=== PATIENT | female | born 1985 | race Caucasian/White ===

== ENCOUNTER 2018-03-19 09:46 | Emergency (ER) | payer SELFPAY ==
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
[2018-03-19 10:36] LABS: ANION GAP 17.4 mmol/L (5-15); CHLORIDE,CL 103 mmol/L (98-115); SODIUM,NA 139 mmol/L (136-145)
[2018-03-19] MEDS ORDERED: Ondansetron 4 MG/2 ML SDV IVPUSH ONE (10:55)
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
[2018-03-19] MEDS ORDERED: Acetaminophen 325 MG Tab PO ONE (17:28)
== END 2018-03-19 20:20 | disposition home or self-care (01) ==
LOC: KA.ED 09:46
DX: S00.83XA Contusion of other part of head, initial encounter (principal); F10.129 Alcohol abuse with intoxication, unspecified; R07.9 Chest pain, unspecified; M79.642 Pain in left hand; M79.641 Pain in right hand; Y00.XXXA Assault by blunt object, initial encounter; Y92.89 Other specified places as the place of occurrence of the external cause
CPT/HCPCS: 70450; 70486; 71045; 73130-50; 80053; 84702; 85025; 85610; 85730; 99284; 99285; A9270-GY; G0480